=== PATIENT | male | born 1965 | race Caucasian/White ===

== ENCOUNTER 2016-11-08 11:51 | Day surgery (SDC) | payer BC ==
[~2016-11-08] VITALS: Ht 180.3 cm; Wt 73.1 kg
[~2016-11-08 11:51] MED LIST: NO HOME MEDICATIONS
[2016-11-08 12:10] VITALS: BP 111/83; PULSE 76; TEMP 98.6
[2016-11-08] MEDS ORDERED: TOPROL XL 25MG25 MG PO (12:11)
[2016-11-08] MEDS ORDERED: PROSCAR 5MG5 MG PO (12:11)
[2016-11-08] MEDS ORDERED: ZOCOR 20MG20 MG PO (12:12)
[2016-11-08] MEDS ORDERED: VITAMIN D31000 IU PO (12:13)
[2016-11-08] MEDS ORDERED: WELLBUTRIN SR150 M1 PO (12:13)
[2016-11-08] MEDS ORDERED: MULTI VITAMINS1 TAB PO (12:14)
[2016-11-08] MEDS ORDERED: VITAMIN B-1000 MCG/T PO (12:15)
[2016-11-08 13:49] VITALS: BP 97/77; PULSE 86; TEMP 97.7
[2016-11-08 13:50] VITALS: BP 97/77; PULSE 86; TEMP 97.7
[2016-11-08 14:05] VITALS: BP 106/60; PULSE 83
[2016-11-08 14:20] VITALS: BP 97/73; PULSE 78
== END 2016-11-08 14:45 | disposition home or self-care (01) ==
LOC: SDCO 11:51
DX: Z12.11 Encounter for screening for malignant neoplasm of colon (principal); D12.2 Benign neoplasm of ascending colon; K57.30 Diverticulosis of large intestine without perforation or abscess without bleeding; K64.2 Third degree hemorrhoids; I10 Essential (primary) hypertension; E78.00 Pure hypercholesterolemia, unspecified; N40.0 Benign prostatic hyperplasia without lower urinary tract symptoms; K64.9 Unspecified hemorrhoids
CPT/HCPCS: OP; J2250; J3010; J7030